=== PATIENT | male | born 1960 | race Caucasian/White ===

== ENCOUNTER 2020-12-14 21:28 | Observation (INO) | payer OTHER ==
[~2020-12-14] VITALS: Ht 188 cm; Wt 86.4 kg
[2020-12-14] MEDS ORDERED: ZYRTEC10 MG PO (22:04)
[2020-12-14] MEDS ORDERED: SYMBICORT 16010.2 GM INH (22:04)
[2020-12-14] MEDS ORDERED: OMEPRAZOLE20 M1 PO (22:05)
[2020-12-14] MEDS ORDERED: FLUTICASONE PRO16 GM NASAL (22:05)
[2020-12-14] MEDS ORDERED: MUCINEX600 MG (22:06)
[2020-12-14] MEDS ORDERED: SUDAFED 30 MG T30 MG PO (22:06)
[2020-12-14] MEDS ORDERED: DOXYCYCLINE HY100 M2 PO (22:06)
[2020-12-14] MEDS ORDERED: KETOCONAZOLE120 ML (22:07)
[2020-12-14 22:45] VITALS: BP 132/76
[2020-12-14 23:30] VITALS: BP 132/70
[2020-12-15 00:30] VITALS: BP 144/75
[2020-12-15 03:40] LABS: BASOPHILS 0.7 % (0-2); EOSINOPHILS 2.1 % (0-7); HEMATOCRIT 45.5 % (42.0-54.0); HEMOGLOBIN 15.2 g/dL (13.5-17.5); LYMPHOCYTES 24.5 % (15-50); MCH 28.8 pg (26.0-34.0); MCHC 33.4 g/dL (31.0-37.0); MCV 86.3 fL (80.0-100.0); MEAN PLATELET VOLUME 8.6 fL (7.4-10.4); MONOCYTES 7.2 % (2-11); NEUTROPHILS 65.5 % (40-80); PLATELET COUNT 247 10x3/uL (130-400); RBC 5.27 10x6/uL (4.20-6.10); RDW 13.4 % (11.5-14.5); WBC 9.1 10x3/uL (4.8-10.8)
[2020-12-15 03:49] LABS: APTT 25.9 SECONDS (22.8-39.4); INR 1.1 (0.85-1.17); PROTIME 13.1 SECONDS (11.6-15.0)
[2020-12-15 03:59] LABS: ALBUMIN 3.9 g/dL (3.4-5.0); ALKALINE PHOSPHATASE 69 U/L (30-120); ALT (SGPT) 26 U/L (10-68); BILIRUBIN - TOTAL 0.58 mg/dL (0.2-1.3); CALC OSMOLALITY 281 mosm/kg (275-300); CALCIUM 8.5 mg/dL (8.5-10.1); CARBON DIOXIDE 31.7 mmol/L (21.0-32.0); CHLORIDE - SERUM 104 mmol/L (98-107); CKMB 2.5 U/L (0.0-3.6); CREATINE KINASE 399 UL (21-232); CREATININE - SERUM 1.2 mg/dL (0.6-1.3); GLUCOSE 104 mg/dL (74-106); MAGNESIUM - SERUM 2.4 mg/dL (1.8-2.4); PROTEIN - SERUM 7.3 g/dL (6.4-8.2); SODIUM 142 mmol/L (136-145); TROPONIN-I < 0.017 ng/mL (0.000-0.060); UREA NITROGEN 9 mg/dL (7-18); eGFR NON AFRICAN AMERICAN 66 mL/min (90-120)
[2020-12-15 08:34] VITALS: BP 140/84
[2020-12-15 09:15] LABS: BILIRUBIN NEGATIVE (NEGATIVE); KETONE NEGATIVE (NEGATIVE); NITRITE NEGATIVE (NEGATIVE); UROBILINOGEN NORMAL mg/dL (< 2)
[2020-12-15 09:30] LABS: UDS - AMPHET NEGATIVE QUAL (NEGATIVE); UDS - BARB NEGATIVE QUAL (NEGATIVE); UDS - BENZO NEGATIVE QUAL (NEGATIVE); UDS - COCAINE NEGATIVE QUAL (NEGATIVE); UDS - OPIATE POSITIVE QUAL (NEGATIVE); UDS - PCP NEGATIVE QUAL (NEGATIVE); UDS - THC POSITIVE QUAL (NEGATIVE)
[2020-12-15] MEDS ORDERED: CYCLOBENZAPRINE10 MG PO (10:53)
--- NOTE | 2020-12-15 11:15 | NUR ---
PATIENT [id number] RESP EVEN AND NONLABORED, NO S/S OF DISTRESS, MEDICATIONS ADMINSITERED WITH NO COMPLICATIONS, NO FURTHER NEEDS AT THIS TIME, CLIR, BLP
[2020-12-15 11:35] VITALS: Ht 188 cm; Wt 86.4 kg
[2020-12-15] MEDS ORDERED: HYDROCODON-ACE1 EA10 PO (15:22)
== END 2020-12-15 12:49 | disposition home or self-care (01) ==
LOC: D.ER 21:28 → D.M2 12-15 04:55 → OBSVTIME 12-15 04:56 → D.M2 12-15 12:49
PROVIDERS: ADMIT Emergency Medicine; ATTEND Emergency Medicine
DX: S22.41XA Multiple fractures of ribs, right side, initial encounter for closed fracture (principal); J45.909 Unspecified asthma, uncomplicated; Z72.0 Tobacco use; W01.10XA Fall on same level from slipping, tripping and stumbling with subsequent striking against unspecified object, initial encounter; Y93.9 Activity, unspecified; Y92.9 Unspecified place or not applicable; S32.009A Unspecified fracture of unspecified lumbar vertebra, initial encounter for closed fracture